=== PATIENT | female | born 1995 | race Caucasian/White ===

== ENCOUNTER 2021-04-29 02:09 | Emergency (ER) | payer BC | END 2021-04-29 04:04 | disposition home or self-care (01) | LOC: MERGE 02:09 → MW.ED 02:09 | DX: O20.0 Threatened abortion (principal); Z3A.01 Less than 8 weeks gestation of pregnancy | CPT/HCPCS: 36415; 84702; 85025; 86900; 86901; 99283; 99284 ==

== ENCOUNTER 2021-08-12 18:41 | Emergency (ER) | payer OTHER, BC ==
[2021-08-12] MEDS ORDERED: Tetracaine HCl/PF 0.5% 4 ML Bottle EYEBOTH ONE (19:26)
[2021-08-12] MEDS ORDERED: Sodium Chloride 0.9% 1,000 ML IRR ONE (19:44)
== END 2021-08-12 21:25 | disposition home or self-care (01) ==
LOC: MW.ED 18:41
DX: H10.9 Unspecified conjunctivitis (principal)
CPT/HCPCS: 99283; J7030